=== PATIENT | male | born 1970 | race Caucasian/White ===

== ENCOUNTER 2023-06-02 14:28 | Emergency (ER) | payer MEDICAID, SELFPAY ==
[2023-06-02 14:36] VITALS: BP 135/93; PULSE 127; RESP 20; TEMP 36.3; O2SAT 98; BMI 24.4
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
== END 2023-06-02 15:38 | disposition home or self-care (01) ==
LOC: ED 15:35
PROVIDERS: Emergency Provider Family Medicine
DX: R45.851 Suicidal ideations (principal); Z63.0 Problems in relationship with spouse or partner
CPT/HCPCS: 99283; 99284

== ENCOUNTER 2023-07-11 01:28 | Emergency (ER) | payer MEDICAID, SELFPAY ==
--- NOTE | 2023-07-11 01:34 | CT_ITS ---
Patient: JACK SALGADO Facility:?[facility] Patient ID:?[id number] Site Patient ID:?[id number] Site :?[id number] Study:?CT-Abdomen/Pelvis W/ISOVUE 370 99CC-07/11/2023 2:04:30 AM Ordering Physician:ROOSEVELT Final Report: INDICATION: Abdominal pain. TECHNIQUE: CT abdomen and pelvis acquired with 99 cc of Isovue 370 IV contrast. COMPARISON: None. FINDINGS: Lower chest: Unremarkable. Liver: Calcified granulomata. No suspicious mass. Gallbladder and bile ducts: Cholelithiasis. No inflammation or biliary ductal dilation. Pancreas: Unremarkable. No mass or inflammation. Spleen: Unremarkable. Normal in size. No masses. Adrenal glands: Unremarkable. No nodules. Kidneys: Unremarkable. No suspicious masses, stones, or hydronephrosis. GI tract: Unremarkable. Normal in caliber. No sign of mass or inflammation. Normal appendix. Vasculature: Abdominal aorta is normal in caliber. Mesenteric arteries are patent. Lymph nodes: No lymphadenopathy. Peritoneum/Abdominal Wall: Unremarkable. No free air or significant free fluid. Pelvis: Unremarkable. Bones: Unremarkable for age. IMPRESSION: 1. No acute findings within the abdomen and pelvis. Normal appendix. 2. Cholelithiasis evidence for acute cholecystitis. Please note that all CT scans at this facility use dose modulation, iterative reconstruction, and/or weight-based dosing when appropriate to reduce radiation dose to as low as reasonably achievable. Dictated by Aureliano Lepe MD @ 07/11/2023 2:21:54 AM Signed by:?Aureliano Lepe MD @07/11/2023 2:21:54 AM (Electronic Signature)
[2023-07-11 01:36] VITALS: BP 152/101; PULSE 135; RESP 16; TEMP 36.6; O2SAT 98; BMI 27.1
[2023-07-11 01:59] LABS: Basophils Percent Auto 0.3 % (0.0-3.0); Eosinophils Percent Auto 0.5 % (0.0-7.0); Hemoglobin* 17.7 gm/dL (13.5-17.5); Immature Granulocytes Pct Auto 0.4 %; Lymphocytes Percent Auto 10.1 % (20-44); Mean Corpuscular HGB Conc 35 gm/dL (32-36); Mean Corpuscular Hemoglobin 29 pg (26-34); Mean Corpuscular Volume 84 fL (80-100); Monocytes Percent Auto 4.3 % (0.0-11.0); Neutrophils Percent Auto 84.4 % (42.0-72.0); Platelet Count* 320 K/uL (140-440); Red Blood Count 6.09 m/uL (4.30-5.90); White Blood Count* 15.08 K/uL (4.50-11.00)
[2023-07-11 02:00] LABS: Slide Review Reflex No
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
[2023-07-11] MEDS: 0.9 % SODIUM CHLORIDE 1000 ml 1,000 ML IV (02:09)
[2023-07-11 02:12] VITALS: PULSE 118; RESP 16; O2SAT 98
[2023-07-11 02:37] LABS: Appearance Urine Clear (Clear); Bilirubin Urine Negative (Negative); Blood Urine Negative (Negative); Color Urine Yellow (Yellow); Glucose Urine 2+ (Negative); Ketones Urine 1+ (Negative); Leukocyte Esterase Urine Negative (Negative); Nitrite Urine Negative (Negative); Protein Urine Negative (Negative); Urobilinogen Urine 0.2 (0.2-1.0); pH Urine 6.5 (5.0-8.5)
[2023-07-11 02:40] LABS: RBC Urine 0-2 (0-2); Squamous Epithelial Cell Urine Few (None-Few); WBC Urine 0-2 (0-5)
[2023-07-11 02:52] LABS: D Dimer Quantitative* 0.35 ug/ml (0.00-0.50)
[2023-07-11 02:54] LABS: Albumin* 4.3 g/dL (3.3-5.0); Anion Gap 9 mEq/L (7-15); Aspartate Amino Transferase* 50 U/L (12-35); Bilirubin Total* 0.7 mg/dL (0.1-1.5); Blood Urea Nitrogen* 23 mg/dL (7-30); Calcium* 9.1 mg/dL (8.4-10.6); Carbon Dioxide* 24 mmol/L (20-32); Chloride* 94 mmol/L (96-114); Creatinine* 0.7 mg/dL (0.5-1.5); Est. Creatinine Clearance* 133.95; Estimated Glomerular Filt Rate 110 ml/min; Potassium* 4.4 mmol/L (3.6-5.1); Sodium* 127 mmol/L (135-149); Total Protein* 7.2 g/dL (6.0-8.3)
[2023-07-11 02:55] LABS: Alanine Aminotransferase* 57 U/L (4-50); Alkaline Phosphatase* 160 U/L (40-150); Amylase* 118 U/L (18-89)
[2023-07-11 02:56] LABS: Glucose* 606 mg/dL (60-115)
[2023-07-11 02:57] LABS: Amphetamine Screen Urine POSITIVE (Negative); Barbiturate Screen Urine Negative (Negative); Benzodiazepines Screen Urine Negative (Negative); Cannabinoid Screen Urine Negative (Negative); Cocaine Screen Urine Negative (Negative); Methadone Screen Urine Negative (Negative); Methamphetamines Screen Urine POSITIVE (Negative); Opiate Screen Urine Negative (Negative); Oxycodone Screen Urine Negative (Negative); Phencyclidine Screen Urine Negative (Negative); Tricyclic Antidepressant Urine Negative (Negative)
[2023-07-11 03:05] LABS: Troponin I* < 0.01 ng/mL (0.01-0.04)
== END 2023-07-11 03:05 | disposition left against medical advice (07) ==
PROVIDERS: Emergency Provider Internal Medicine
DX: E11.9 Type 2 diabetes mellitus without complications (principal); Z53.29 Procedure and treatment not carried out because of patient's decision for other reasons
CPT/HCPCS: 36415; 74177; 80053; 80306; 81001; 81003; 82150; 84484; 85025; 85379; 93005; 99283; 99284; J7030; Q9967